=== PATIENT | male | born 1950 | race Caucasian/White ===

== ENCOUNTER 2024-07-12 10:48 | Outpatient (CLI) | payer MEDICARE, SELFPAY ==
--- NOTE | ~2024-07-12 | MR_ITS ---
EXAMINATION: MR shoulder LT wo con DATE: 07/12/2024 11:27 INDICATION: Left shoulder pain TECHNIQUE: Magnetic resonance imaging (MRI) of the left shoulder was performed without intravenous co ntrast. Sequences included axial PD-weighted FS FSE, coronal oblique PD-weighted FS FSE, coronal obli que T2-weighted FS FSE, sagittal PD-weighted FS FSE, and sagittal T1-weighted SE. COMPARISON: None. FINDINGS: Coracoacromial arch: The acromion undersurface is curved in morphology (type II). The coracoacromial ligament is normal. M oderate acromioclavicular osteoarthritis. Rotator cuff: Moderate supraspinatus and infraspinatus tendinopathy. There is a partial-thickness articular sided t ear extending 10 mm AP along the superior facet footplate of the supraspinatus tendon and involving u p to two thirds of the tendon thickness. There is up to 10 mm medial retraction of the torn articular side of the tendon. The teres minor and subscapularis tendons are normal. Normal rotator cuff muscle bulk and signal. Biceps tendon, glenoid labrum and glenohumeral cartilage: Long head of the biceps tendon is normal. There is a superior, anterior to posterior tear of the remi oid labrum (SLAP tear) of the superior to posterior superior glenoid labrum change from the 10:00-12: 00 position. There is mild subarticular cystlike change along the underlying posterior superior rim o f the glenoid with thinning of the overlying articular cartilage. There is additional degeneration of the anteroinferior glenoid labrum with small marginal osteophyte at the 3:00 position of the anterio r glenoid and additional subarticular cystlike change at the 4:00-5:00 position of the anteroinferior glenoid. More well-defined linear tear is seen along the base of the intervening inferior and fuel cell assembler ior inferior glenoid labrum additional small marginal osteophyte along the posterior rim of the gleno id. There is chondral ulceration which appears to involve greater than 50% the cartilage thickness wi th chondral surface irregularity but without degenerative subchondral changes at the superomedial and superior aspect of the humeral head. Fluid: Small effusion and synovitis at the recesses of the glenoid humeral joint space. No loose osteochondr al bodies. There is also bicipital tenosynovitis with fluid and mild synovitis along the long head bi ceps tendon sheath. Small amount of fluid and synovitis in the subacromial/subdeltoid bursa consisten t with mild bursitis. Bones: Bone alignment is normal. Normal marrow signal with no fracture or pathologic marrow replacing proces s. There are cystic change along the floor of the cephalad aspect of the intertubercular groove. IMPRESSION: 1. Mild glenohumeral osteoarthritis with diffuse tearing of the glenoid labrum. Line 2. Moderate supraspinatus and infraspinatus tendinopathy with small moderate severity partial-thickne ss articular sided tear along the superior facet footplate of the supraspinatus tendon. 3. Moderate acromioclavicular osteoarthritis. 4. Bicipital tenosynovitis and subacromial/subdeltoid bursitis. Reviewed, dictated and finalized at location B. [employer] IMPRESSION: 1. Mild glenohumeral osteoarthritis with diffuse tearing of the glenoid labrum. Line 2. Moderate supraspinatus and infraspinatus tendinopathy with small moderate se verity partial-thickness articular sided tear along the superior facet footplat e of the supraspinatus tendon. 3. Moderate acromioclavicular osteoarthritis. 4. Bicipital tenosynovitis and subacromial/subdeltoid bursitis.
== END 2024-07-12 10:49 | disposition home or self-care (01) ==
LOC: MICIMG 10:50
PROVIDERS: PCP Physician Assistant; Visit Provider Physician Assistant
DX: M19.012 Primary osteoarthritis, left shoulder (principal); S43.432A Superior glenoid labrum lesion of left shoulder, initial encounter; S46.812A Strain of other muscles, fascia and tendons at shoulder and upper arm level, left arm, initial encounter; X58.XXXA Exposure to other specified factors, initial encounter; M75.82 Other shoulder lesions, left shoulder; M75.22 Bicipital tendinitis, left shoulder; M75.52 Bursitis of left shoulder
CPT/HCPCS: 73221